=== PATIENT | male | born 1995 | race Caucasian/White ===

== ENCOUNTER 2017-01-25 00:20 | Emergency (ER) | payer BC ==
[2017-01-25 00:36] VITALS: BP 147/90
[2017-01-25] MEDS ORDERED: Ondansetron 4 MG Tab.DIS PO ONE (00:43)
--- NOTE | 2017-01-25 00:49 | EDM.PDOC ---
ED HPI GENERAL MEDICAL PROBLEM - General Chief Complaint: ENT Problem Stated Complaint: LT EAR PAIN Time Seen by Provider: 01/25/17 00:35 Source of Information: Reports: Patient History Limitations: Reports: No Limitations - History of Present Illness INITIAL COMMENTS - FREE TEXT/NARRATIVE: 21 yo male had an abrupt onset this evening of a loud sound in his left ear. Initially he thought there was a bug in the ear so he flushed it, but nothing came out. Now hearing is slightly off in that ear, and he feels mild nausea. He does not recall experiencing any vertigo and has never had this before. Overall , he is feeling better than earlier. Onset: Today Onset Date: 01/25/17 Onset Time: 23:45 Duration: Minutes: Location: Reports: Other (L ear) Quality: Reports: Other (loud initially) Severity: Moderate Improves with: Reports: Other (Time) Worsens with: Reports: None Context: Reports: Other (No hx of the same.) Associated Symptoms: Reports: Nausea/Vomiting (Nausea only) Treatments SHIFT STACKER: Reports: Other (see below) (None) denies pain Pain Score (Numeric/FACES): 0 - Related Data Allergies Allergy/AdvReac Type Severity Reaction Status Date / Time No Known Allergies Allergy Verified 01/25/17 00:28 Home Meds: Home Meds NK [No Known Home Meds] 02/18/14 [History] Past Medical History - Past Health History Medical/Surgical History: Denies Medical/Surgical History Musculoskeletal History: Reports: Fracture, Other (See Below) Dermatologic History: Reports: Other (See Below) Other Dermatologic History: alopecia - Infectious Disease History Infectious Disease History: Reports: Chicken Pox Social & Family History - Tobacco Use Smoking Status *Q: Current Every Day Smoker Years of Tobacco use: 10 Packs/Tins Daily: 1 - Caffeine Use Caffeine Use: Reports: Coffee - Recreational Drug Use Recreational Drug Use: No ED ROS ENT - Review of Systems Review Of Systems: See Below Constitutional: Reports: No Symptoms HEENT: Reports: Hearing Loss (mild hearing loss now.) Respiratory: Reports: No Symptoms Cardiovascular: Reports: No Symptoms Endocrine: Reports: No Symptoms GI/Abdominal: Reports: Nausea. Denies: Diarrhea, Vomiting : Reports: No Symptoms Musculoskeletal: Reports: No Symptoms Skin: Reports: No Symptoms Neurological: Reports: No Symptoms Psychiatric: Reports: No Symptoms ED EXAM, ENT - Physical Exam Exam: See Below Exam Limited By: No Limitations General Appearance: Alert, WD/WN, No Apparent Distress Eye Exam: Bilateral Eye: Normal Inspection Ears: Normal External Exam, Normal Canal, Hearing Grossly Normal, Normal TMs Nose: Normal Inspection, Normal Mucousa, No Blood Mouth/Throat: Normal Inspection, Normal Gums, Normal Lips, Normal Oropharynx Head: Atraumatic, Normocephalic Neck: Normal Inspection, Supple, Non-Tender Respiratory/Chest: No Respiratory Distress, No Accessory Muscle Use Extremities: Normal Inspection, Non-Tender Neurological: Alert, Oriented, CN II-XII Intact, Normal Cognition Psychiatric: Normal Affect, Normal Mood Skin: Warm, Dry, Intact, Normal Color, No Rash Lymphatic: No Adenopathy Course - Vital Signs Text/Narrative:: Zofran ODT 4 mg SL Last Recorded V/S: Last Vital Signs Temp 35.3 C 01/25/17 00:28 Pulse 98 01/25/17 00:28 Resp 17 01/25/17 00:28 BP 147/90 H 01/25/17 00:28 Pulse Ox 97 01/25/17 00:28 - Orders/Labs/Meds Orders: Active Orders 24 hr Category Date Time Status Ondansetron [Zofran ODT] Med 01/25/17 00:43 Once 4 mg PO ONETIME ONE Medication Orders Ondansetron HCl (Zofran Odt) 4 mg PO ONETIME ONE Stop: 01/25/17 00:44 Meds: Medications Generic Name Dose Route Start Last Admin Trade Name Adrian PRN Reason Stop Dose Admin Ondansetron HCl 4 mg 01/25/17 00:43 Zofran Odt PO 01/25/17 00:44 ONETIME ONE Departure - Departure Time of Disposition: 01:00 Disposition: Home, Self-Care 01 Condition: Good Clinical Impression: Auditory complaints of left ear - Discharge Information Forms: ED Department Discharge - My Orders Last 24 Hours: My Active Orders 01/25/17 00:43 Ondansetron [Zofran ODT] 4 mg PO ONETIME ONE - Assessment/Plan Last 24 Hours: My Active Orders 01/25/17 00:43 Ondansetron [Zofran ODT] 4 mg PO ONETIME ONE
== END 2017-01-25 01:08 | disposition home or self-care (01) ==
LOC: JP.ED 00:20
DX: H93.92 Unspecified disorder of left ear (principal); F17.210 Nicotine dependence, cigarettes, uncomplicated
CPT/HCPCS: 99283; A9270

== ENCOUNTER 2019-06-17 23:17 | Emergency (ER) | payer BC, OTHER ==
[2019-06-17 23:43] VITALS: BP 136/76; PULSE 100
--- NOTE | 2019-06-18 00:06 | EDM.PDOC ---
ED HPI GENERAL MEDICAL PROBLEM - General Chief Complaint: Genitourinary Problem Stated Complaint: PEEING BLOOD Time Seen by Provider: 06/17/19 23:58 Source of Information: Reports: Patient History Limitations: Reports: No Limitations - History of Present Illness INITIAL COMMENTS - FREE TEXT/NARRATIVE: Patient presents for evaluation hematuria and left-sided abdominal pain which began this evening. He actually has had episodes of this in the past going back over a couple of years. Generally, he notices blood in the urine if he has been physically active. He trains in [place] and tonight worked out for approximately 1 hour before noticing blood in urine. He had pain in the anterior abdomen just to the left of the midline and to a lesser extent the left flank. That pain comes and goes over many months as well. He has been seen a couple times in the region but no one has given him a definitive diagnosis. He is on no prescription medication. He previously drank alcohol but has not been drinking for some time. He doesn't smoke. 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 Onset: Today, Sudden Duration: Hour(s): Location: Reports: Abdomen Quality: Reports: Ache, Dull Severity: Mild Improves with: Reports: None Worsens with: Reports: Movement Context: Reports: Activity Associated Symptoms: Reports: Other (Hematuria) left abd/ groin Pain Score (Numeric/FACES): 4 - Related Data Allergies Allergy/AdvReac Type Severity Reaction Status Date / Time No Known Allergies Allergy Verified 01/25/17 00:28 Home Meds: Home Meds NK [No Known Home Meds] 02/18/14 [History] Past Medical History - Past Health History Medical/Surgical History: Denies Medical/Surgical History Musculoskeletal History: Reports: Fracture, Other (See Below) Dermatologic History: Reports: Other (See Below) Other Dermatologic History: alopecia - Infectious Disease History Infectious Disease History: Reports: Chicken Pox - Past Surgical History HEENT Surgical History: Reports: Other (See Below) Other HEENT Surgeries/Procedures: wisdom teeth removed Social & Family History - Tobacco Use Smoking Status *Q: Current Every Day Smoker Years of Tobacco use: 10 Packs/Tins Daily: 1 - Caffeine Use Caffeine Use: Reports: Soda - Recreational Drug Use Recreational Drug Use: No ED ROS GENERAL - Review of Systems Review Of Systems: See Below Constitutional: Reports: No Symptoms. Denies: Weakness, Weight Loss Respiratory: Reports: No Symptoms Cardiovascular: Reports: No Symptoms GI/Abdominal: Reports: Abdominal Pain (Left low anterior abdomen.) : Reports: Hematuria. Denies: Dysuria, Flank Pain, Frequency, Urgency Musculoskeletal: Reports: Muscle Pain Skin: Denies: Bruising Hematologic/Lymphatic: Denies: Easy Bleeding ED EXAM, RENAL/ - Physical Exam Exam: See Below Exam Limited By: No Limitations General Appearance: Alert, No Apparent Distress Respiratory/Chest: No Respiratory Distress Cardiovascular: Tachycardia GI/Abdominal: Normal Bowel Sounds, Soft, Tender (Left low anterior abdomen pain on palpation.) Back Exam: No: CVA Tenderness (L) Course - Vital Signs Last Recorded V/S: Last Vital Signs Temp 36.4 C 06/17/19 23:42 Pulse 100 06/17/19 23:42 Resp 16 06/17/19 23:42 BP 136/76 06/17/19 23:42 Pulse Ox 95 06/17/19 23:42 - Orders/Labs/Meds Labs: Laboratory Tests 06/18/19 06/18/19 06/18/19 Range/Units 00:01 00:30 00:30 WBC 15.7 H (4.5-11.0) K/uL RBC 4.99 (4.30-5.90) M/uL Hgb 15.4 H (12.0-15.0) g/dL Hct 44.5 (40.0-54.0) % MCV 89 (80-98) fL MCH 31 (27-31) pg MCHC 35 (32-36) % Plt Count 191 (150-400) K/uL Neut % (Auto) 77 H (36-66) % Lymph % (Auto) 16 L (24-44) % [place] % (Auto) 6 (2-6) % Eos % (Auto) 1 L (2-4) % Baso % (Auto) 0 (0-1) % Sodium 138 L (140-148) mmol/L Potassium 3.9 (3.6-5.2) mmol/L Chloride 100 (100-108) mmol/L Carbon Dioxide 27 (21-32) mmol/L Anion Gap 14.9 H (5.0-14.0) mmol/L BUN 18 (7-18) mg/dL Creatinine 1.1 (0.8-1.3) mg/dL Est Cr Clr Drug Dosing 115.01 mL/min Estimated GFR (MDRD) > 60 (>60) Glucose 97 (74-106) mg/dL Calcium 10.1 (8.5-10.1) mg/dL Total Bilirubin 0.5 (0.2-1.0) mg/dL AST 740 H (15-37) U/L ALT 119 H (12-78) U/L Alkaline Phosphatase 100 (46-116) U/L Creatine Kinase 3301 H (39-308) U/L C-Reactive Protein (0.0-0.3) mg/dL Total Protein 8.4 H (6.4-8.2) g/dL Albumin 4.8 (3.4-5.0) g/dL Globulin 3.6 H (2.3-3.5) g/dL Albumin/Globulin Ratio 1.3 (1.2-2.2) Urine Color Red A (YELLOW) Urine Appearance Clear (CLEAR) Urine pH 7.0 (5.0-8.0) Ur Specific [place] 1.010 (1.008-1.030) Urine Protein 100 H (NEGATIVE) mg/dL Urine Glucose (UA) Negative (NEGATIVE) mg/dL Urine Ketones Negative (NEGATIVE) mg/dL Urine Occult Blood Large H (NEGATIVE) Urine Nitrite Negative (NEGATIVE) Urine Bilirubin Negative (NEGATIVE) Urine Urobilinogen 0.2 (0.2-1.0) EU/dL Ur Leukocyte Esterase Negative (NEGATIVE) Urine RBC 0-5 (0-5) Urine WBC 0-5 (0-5) Ur Epithelial Cells Rare Amorphous Sediment Few Urine Bacteria Few Urine Mucus Not seen 06/18/19 Range/Units 00:30 WBC (4.5-11.0) K/uL RBC (4.30-5.90) M/uL Hgb (12.0-15.0) g/dL Hct (40.0-54.0) % MCV (80-98) fL MCH (27-31) pg MCHC (32-36) % Plt Count (150-400) K/uL Neut % (Auto) (36-66) % Lymph % (Auto) (24-44) % [place] % (Auto) (2-6) % Eos % (Auto) (2-4) % Baso % (Auto) (0-1) % Sodium (140-148) mmol/L Potassium (3.6-5.2) mmol/L Chloride (100-108) mmol/L Carbon Dioxide (21-32) mmol/L Anion Gap (5.0-14.0) mmol/L BUN (7-18) mg/dL Creatinine (0.8-1.3) mg/dL Est Cr Clr Drug Dosing mL/min Estimated GFR (MDRD) (>60) Glucose (74-106) mg/dL Calcium (8.5-10.1) mg/dL Total Bilirubin (0.2-1.0) mg/dL AST (15-37) U/L ALT (12-78) U/L Alkaline Phosphatase (46-116) U/L Creatine Kinase (39-308) U/L C-Reactive Protein 0.42 H (0.0-0.3) mg/dL Total Protein (6.4-8.2) g/dL Albumin (3.4-5.0) g/dL Globulin (2.3-3.5) g/dL Albumin/Globulin Ratio (1.2-2.2) Urine Color (YELLOW) Urine Appearance (CLEAR) Urine pH (5.0-8.0) Ur Specific [place] (1.008-1.030) Urine Protein (NEGATIVE) mg/dL Urine Glucose (UA) (NEGATIVE) mg/dL Urine Ketones (NEGATIVE) mg/dL Urine Occult Blood (NEGATIVE) Urine Nitrite (NEGATIVE) Urine Bilirubin (NEGATIVE) Urine Urobilinogen (0.2-1.0) EU/dL Ur Leukocyte Esterase (NEGATIVE) Urine RBC (0-5) Urine WBC (0-5) Ur Epithelial Cells Amorphous Sediment Urine Bacteria Urine Mucus - Re-Assessments/Exams Free Text/Narrative Re-Assessment/Exam: 06/18/19 00:33 I discussed that we will look at some basic metabolic and inflammatory parameters tonight. He may benefit from repeating a CT scan given the intermittent but persistent nature of his symptoms. We'll await completion of lab testing first. 06/18/19 02:05 I returned to review results of lab testing which show elevated AST and ALTs levels with normal bilirubin and alkaline phosphatase levels. His CPK is 3300 and his leukocyte count is almost 16,000. Taken together, I can't provide him with an explanation of a single condition that would cause all of these and give him hematuria. He needs clinic follow-up and an organized approach to looking at his symptoms in more detail. 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 No medications were prescribed tondelvin. Patient is contemplating who he would talk to 4 establishing primary care. If he feels worse in any way, he can return here but I strongly encouraged him to talk with family care in some capacity next week. He was discharged in stable condition. Departure - Departure Time of Disposition: 01:54 Disposition: Home, Self-Care 01 Condition: Good Clinical Impression: Hematuria, Abnormal liver enzymes, Abnormal CPK, Leukocytosis, unspecified - Discharge Information *PRESCRIPTION DRUG MONITORING PROGRAM REVIEWED*: Not Applicable *COPY OF PRESCRIPTION DRUG MONITORING REPORT IN PATIENT RONDA: Not Applicable Instructions: Liver Function Tests, Hematuria, Adult Referrals: PCP,None [Primary Care Provider] - Forms: ED Department Discharge Additional Instructions: He needed to establish a primary care provider who can coordinate further evaluation of your findings from tonight. I recommend avoiding strenuous activity including X Pritesh or contact activities. Do not drink alcohol, take Tylenol. Continue usual eating and fluid intake patterns however. He will need other evaluations including imaging studies of your abdomen region in particular. An organized outpatient workup is the best way to follow through with this and he should avoid seeing too many initial study/primary care providers. That may just cloud the picture. Start with one and use that provider as your reference point and coordinating point. If you feel worse in anyway return to the emergency department.
== END 2019-06-18 02:02 | disposition home or self-care (01) ==
LOC: JP.ED 23:17
DX: R31.9 Hematuria, unspecified (principal); R94.5 Abnormal results of liver function studies; R74.8 Abnormal levels of other serum enzymes; D72.829 Elevated white blood cell count, unspecified; F17.210 Nicotine dependence, cigarettes, uncomplicated
CPT/HCPCS: 36415; 80053; 81001; 82550; 85025; 85610; 86140; 99284